=== PATIENT | male | born 1995 | race Two or more races ===

== ENCOUNTER 2018-11-16 18:33 | Emergency (ER) | payer SELFPAY ==
--- NOTE | 2018-11-16 19:35 | ER Document Report ---
ED Medical Screen (RME) - General Chief Complaint: Abdominal Pain Stated Complaint: LOWER ABDOMINAL PAIN Time Seen by Provider: 11/16/18 19:33 Mode of Arrival: Ambulatory Information source: Patient TRAVEL OUTSIDE OF THE [place] IN LAST 30 DAYS: No - HPI Patient complains to provider of: TRAY HASSAN Notes: 11/16/18 19:34 Patient here with complaints of left lower quadrant pain with nausea and diarrhea. Symptoms started yesterday. No fevers. No dysuria. Exam Nontoxic-appearing, stable vitals. No distress. Lungs clear and equal throughout. Heart sounds normal. Left lower quadrant tenderness to palpation on limited triage abdominal exam. Plan CBC, CMP, lipase, urine, CT abdomen pelvis with IV contrast. An initial examination was made on the patient as part of the triage process, and it was determined a more comprehensive evaluation was necessary. Initial labs were ordered and patient was transferred to another provider in the ED who assumed care and finished evaluation and plan. - Related Data Allergies/Adverse Reactions: No Known Allergies Allergy (Verified 11/16/18 18:35) Past Medical History Renal/ Medical History: Denies: Hx Peritoneal Dialysis Physical Exam - Vital signs Vitals: Temp Pulse Resp BP Pulse Ox 97.7 F 75 18 162/85 H 97 11/16/18 18:50 11/16/18 18:50 11/16/18 18:50 11/16/18 18:50 11/16/18 18:50 Course - Vital Signs Vital signs: Temp Pulse Resp BP Pulse Ox 97.7 F 75 18 162/85 H 97 11/16/18 18:50 11/16/18 18:50 11/16/18 18:50 11/16/18 18:50 11/16/18 18:50
[2018-11-16 19:58] LABS: ABSOLUTE EOSINOPHILS # (AUTO) 0.1 10^3/uL (0.0-0.6); ABSOLUTE LYMPHOCYTES (AUTO) 2.2 10^3/uL (0.5-4.7); ABSOLUTE MONOCYTES (AUTO) 0.7 10^3/uL (0.1-1.4); ABSOLUTE NEUT (AUTO) 5.1 10^3/uL (1.7-8.2); BASOPHILS % (AUTO) 0.4 % (0-2); EOSINOPHILS % (AUTO) 0.8 % (0-6); HEMATOCRIT 49.4 % (37.9-51.0); LYMPHOCYTES % (AUTO) 27.5 % (13-45); MEAN CORPUSCULAR HEMOGLOBIN 30.4 pg (27.0-33.4); MEAN CORPUSCULAR HGB CONC 34.5 g/dL (32.0-36.0); MEAN CORPUSCULAR VOLUME 88 fl (80-97); MONOCYTES % (AUTO) 8.7 % (3-13); PLATELET COUNT 284 10^3/uL (150-450); RED BLOOD COUNT 5.61 10^6/uL (4.35-5.55); RED CELL DISTRIBUTION WIDTH 13.3 % (11.5-14.0); SEGMENTED NEUTROPHILS % (AUTO) 62.6 % (42-78); TOTAL CELLS COUNTED % (AUTO) 100 %; WHITE BLOOD COUNT 8.1 10^3/uL (4.0-10.5)
[2018-11-16 20:04] LABS: APPEARANCE,URINE CLEAR; BILIRUBIN,URINE NEGATIVE (NEGATIVE); COLOR,URINE STRAW; GLUCOSE, URINE NEGATIVE (NEGATIVE); KETONES,URINE NEGATIVE (NEGATIVE); LEUKOCYTE ESTERASE,URINE NEGATIVE (NEGATIVE); NITRITE,URINE NEGATIVE (NEGATIVE); PROTEIN,URINE NEGATIVE (NEGATIVE); URINE SPECIFIC GRAVITY 1.003; UROBILINOGEN,URINE NEGATIVE mg/dL (<2.0)
[2018-11-16 20:17] LABS: ALANINE AMINOTRANSFERASE 278 U/L (21-72); ALBUMIN 4.8 g/dL (3.5-5.0); ALKALINE PHOSPHATASE 91 U/L (38-126); ANION GAP 11 (5-19); ASPARTATE AMINO TRANSFERASE 143 U/L (17-59); BILIRUBIN,DIRECT 0.5 mg/dL (0.0-0.4); BILIRUBIN,TOTAL 0.8 mg/dL (0.2-1.3); BLOOD UREA NITROGEN 11 mg/dL (7-20); CALCIUM 9.9 mg/dL (8.4-10.2); CARBON DIOXIDE 27 mmol/L (22-30); CHLORIDE 101 mmol/L (98-107); GLUCOSE 97 mg/dL (75-110); LIPASE 85.5 U/L (23-300); POTASSIUM 4.5 mmol/L (3.6-5.0); SODIUM 139.4 mmol/L (137-145); TOTAL PROTEIN 8.1 g/dL (6.3-8.2)
--- NOTE | 2018-11-16 21:09 | RADIOLOGY REPORT (SQ) ---
EXAM DESCRIPTION: CT ABDOMEN PELVIS WITH IV CONTRAST COMPLETED DATE/TME: 11/16/2018 19:33 CLINICAL HISTORY: LLQ PAIN COMPARISON: None Available TECHNIQUE: Contiguous axial images of the abdomen and pelvis were obtained followed by reconstruction images. This exam was performed according to our departmental dose-optimization program, which includes automated exposure control, adjustment of the mA and/or kV according to patient size and/or use of iterative reconstruction technique. FINDINGS: The liver is of decreased attenuation compatible with fatty infiltration. There is a nonobstructive 5 mm stone within the left kidney. The liver, spleen, pancreas and kidneys are otherwise within normal limits. There is no hydronephrosis. The gallbladder is unremarkable by CT criteria. Adrenal glands are within normal limits. Aorta is of normal caliber and tapering. There is no free fluid in the abdomen or pelvis. There is no bowel obstruction. There is no stranding of the mesenteric fat to suggest an inflammatory response. The appendix is within normal limits. There is no pericecal inflammation. IMPRESSION: No acute intra-abdominal abnormality. Nonobstructive stone within the left kidney.
[2018-11-16] MEDS ORDERED: FENTANYL CITRATE INJ/PF 100 MCG/2 ML AMPUL IV ONE (22:19)
[2018-11-16] MEDS ORDERED: METOCLOPRAMIDE HCL INJ/PF 10 MG/2 ML SDV IV ONE (22:19)
[2018-11-16] MEDS ORDERED: DICYCLOMINE HCL 20 MG TABLET PO ONE (22:20)
--- NOTE | 2018-11-16 22:32 | ER Document Report ---
ED General - General Chief Complaint: Abdominal Pain Stated Complaint: LOWER ABDOMINAL PAIN Time Seen by Provider: 11/16/18 19:33 Mode of Arrival: Ambulatory Notes: Patient is otherwise healthy 22-year-old male presents to the emergency department with left lower abdominal pain intermittent cramping since last night. Patient states he has had 2 episodes of diarrhea is denying black stools or bright red stools. Patient states he is also nauseated but has not vomited. Patient is denying any dysuria or penile or testicle pain. Patient denies any trauma or injury to his abdominal area. Past medical history: None Medications: None Allergies: None Surgical history: None TRAVEL OUTSIDE OF THE [place] IN LAST 30 DAYS: No - Related Data Allergies/Adverse Reactions: No Known Allergies Allergy (Verified 11/16/18 18:35) Past Medical History - General Information source: Patient - Social History Smoking Status: Unknown if Ever Smoked Family History: Reviewed & Not Pertinent Patient has suicidal ideation: No Patient has homicidal ideation: No Renal/ Medical History: Denies: Hx Peritoneal Dialysis Review of Systems - Review of Systems Constitutional: denies: Fever EENT: No symptoms reported Cardiovascular: No symptoms reported Respiratory: No symptoms reported Gastrointestinal: See HPI Genitourinary: See HPI Male Genitourinary: See HPI Musculoskeletal: No symptoms reported Skin: No symptoms reported Hematologic/Lymphatic: No symptoms reported Neurological/Psychological: No symptoms reported Physical Exam - Vital signs Vitals: Temp Pulse Resp BP Pulse Ox 97.7 F 75 18 162/85 H 97 11/16/18 18:50 11/16/18 18:50 11/16/18 18:50 11/16/18 18:50 11/16/18 18:50 - Notes Notes: GENERAL: Alert, interacts well. No acute distress. HEAD: Normocephalic, atraumatic. EYES: Pupils equal, round, and reactive to light. Extraocular movements intact. ENT: Oral mucosa moist, tongue midline. NECK: Full range of motion. Supple. Trachea midline. LUNGS: Clear to auscultation bilaterally, no wheezes, rales, or rhonchi. No respiratory distress. HEART: Regular rate and rhythm. No murmur ABDOMEN: Soft, no McBurney's point tenderness, no Woods sign noted. Non- distended. Bowel sounds present in all 4 quadrants. Minor tenderness noted left lower quadrant. EXTREMITIES: Moves all 4 extremities spontaneously. No edema, normal radial and dorsalis pedis pulses bilaterally. No cyanosis. BACK: no cervical, thoracic, lumbar midline tenderness. No saddle anesthesia, normal distal neurovascular exam. No CVA tenderness noted bilaterally NEUROLOGICAL: Alert and oriented x3. Normal speech. cranial nerves II through XII grossly intact PSYCH: Normal affect, normal mood. SKIN: Warm, dry, normal turgor. No rashes or lesions noted. Genitalia: Youth Leader Lala RECIO, uncircumcised penis, bilateral testicles descended nontender, non-erythematous bilaterally. Course - Re-evaluation Re-evalutation: 11/16/18 22:28 Patient's father is in the room and speaks Ivorian. Patient speaks Faroese. Proc Tech Sheila used. Patient does admit to heavy EtOH use. Discussed with patient and father that patient's liver function tests are elevated, AST 143, ALT 278. Discussed this could be due to alcohol although should be trended and monitored by primary care provider. Patient states he does not have insurance. Phone numbers for [facility] in [facility] will be provided. Patient's labs show no signs of leukocytosis, no signs of urinary tract infection. Patient's CT abdomen pelvis which was ordered by [facility] provider shows a left intra-kidney stone with no other intra-abdominal abnormalities. Discussed with patient to the left lower quadrant pain could be cramping due to patient's diarrhea. Discussed use of Bentyl And nausea medications. Patient overall appears well, non-tachycardic, afebrile, stable for discharge. - Vital Signs Vital signs: Temp Pulse Resp BP Pulse Ox 97.7 F 75 18 162/85 H 97 11/16/18 18:50 11/16/18 18:50 11/16/18 18:50 11/16/18 18:50 11/16/18 18:50 - Laboratory Result Diagrams: 11/16/18 19:45 11/16/18 19:45 Laboratory results interpreted by me: 11/16/18 11/16/18 19:45 19:45 RBC 5.61 H Direct Bilirubin 0.5 H AST 143 H ALT 278 H Discharge - Discharge Clinical Impression: Left lower quadrant abdominal pain of unknown etiology, Elevated transaminase level Condition: Stable Disposition: HOME, SELF-CARE Instructions: Abdominal Pain ([facility]), Antispasmodics ([facility]), Antinausea Medication ([facility]), Liver Function Abnormality ([facility]) Additional Instructions: As we discussed you have been seen and treated in the emergency department for your abdominal pain. Your CT imaging shows no abnormalities at this time. Your liver function test is elevated at today's visit. This could be due to your consumption of alcohol although there are other causes of elevated liver function testing. Please make sure you follow-up with your primary care provider for continued and repeat labs. Phone numbers for [facility] and [facility] will be provided in this packet. This is a facility you can go to repeat labs even though you are uninsured. Please also make sure you return to the emergency room should you have any other concerning symptoms. Prescriptions: Dicyclomine HCl [Bentyl 20 mg Tablet] 20 mg PO QID #40 tablet Ondansetron [Zofran Odt 4 mg Tablet] 1 - 2 tab PO Q6 #10 tab.rapdis Forms: Return to Work Referrals: [facility] [Provider Group] - Follow up as needed [facility] [Provider Group] - Follow up as needed Print Language: Faroese
[2018-11-16 22:42] VITALS: BP 131/85
== END 2018-11-16 23:02 | disposition home or self-care (01) ==
LOC: ER 18:33
DX: N20.0 Calculus of kidney (principal); R74.0 Nonspecific elevation of levels of transaminase and lactic acid dehydrogenase [LDH]; R19.7 Diarrhea, unspecified; R10.32 Left lower quadrant pain; R10.814 Left lower quadrant abdominal tenderness; R11.0 Nausea
CPT/HCPCS: 99284; 96374; 96375; 36415; 83690; 85025; 80053; 81001; 74177; J3490; J3010; J2765